=== PATIENT | male | born 2000 | race Caucasian/White ===

== ENCOUNTER 2018-01-02 08:15 | Emergency (ER) | payer OTHER ==
[2018-01-02 09:00] LABS: #Basophils 0.1 thou/uL (0.0-0.2); #Eosinphils 0.2 thou/uL (0.0-0.7); #Lymphocytes 1.2 thou/uL (1.20-3.40); #Monocytes 0.4 thou/uL (0.11-0.59); #Neutrophils 4.1 thou/uL (1.40-6.50); %Basophils 0.9 % (0.0-1.0); %Eosinophils 4.1 % (0.0-10.0); %Lymphocytes 20.1 % (28.0-48.0); %Monocytes 7.2 % (0.0-4.0); %Neutrophils 67.7 % (31.0-61.0); Hemoglobin 17.4 g/dL (14.0-18.0); Mean Corpuscular HGB CONC 34.8 g/dL (32.0-36.0); Mean Corpuscular Hemoglobin 32.9 pg (25.0-35.0); Mean Corpuscular Volume 94.5 fL (78.0-98.0); Platelet Count 180 thou/uL (130-400); RBC Distribution Width 11.4 % (11.5-14.5); Red Blood Cell (RBC) Count 5.29 mill/uL (4.00-5.20)
[2018-01-02 09:14] LABS: Anion Gap 15 mmol/L (10-20); BUN (Urea Nitrogen) 6 mg/dL (8.4-21.0); Calc. Creatinine Clearance 0 mL/min (70-130); Calcium 9.7 mg/dL (7.8-10.44); Carbon Dioxide 18 mmol/L (22-29); Chloride 108 mmol/L (98-107); Estimated GFR-MDRD Greater than 90; Glucose 114 mg/dL (70-105); Potassium 3.8 mmol/L (3.5-5.1); Sodium 137 mmol/L (136-145)
[2018-01-02 09:16] LABS: Carbamazepine-Tegretol 3.2 ug/mL (4.0-12.0)
[2018-01-02] MEDS ORDERED: carBAMazepine 100 mg Chewable Tablet PO SCH (10:00)
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
== END 2018-01-02 10:29 | disposition home or self-care (01) ==
LOC: ERS 08:15
DX: S00.81XA Abrasion of other part of head, initial encounter (principal); S60.512A Abrasion of left hand, initial encounter; G40.909 Epilepsy, unspecified, not intractable, without status epilepticus; F32.9 Major depressive disorder, single episode, unspecified; Z79.899 Other long term (current) drug therapy; X58.XXXA Exposure to other specified factors, initial encounter
CPT/HCPCS: 36415; 80048; 80156; 85025; 96360

== ENCOUNTER 2018-10-18 12:30 | Emergency (ER) | payer OTHER ==
[2018-10-18] MEDS ORDERED: Ondansetron PF 4 MG/2 ML Vial ONE (13:03)
[2018-10-18 13:48] LABS: Anion Gap 14 mmol/L (10-20); BUN (Urea Nitrogen) 9 mg/dL (8.9-20.6); Calc. Creatinine Clearance 0 mL/min (70-130); Calcium 9.8 mg/dL (7.8-10.44); Carbon Dioxide 24 mmol/L (22-29); Chloride 106 mmol/L (98-107); Estimated GFR-MDRD Greater than 90; Glucose 100 mg/dL (70-105); Potassium 4.1 mmol/L (3.5-5.1); Sodium 140 mmol/L (136-145)
== END 2018-10-18 14:03 | disposition home or self-care (01) ==
LOC: ERS 12:30
DX: R56.9 Unspecified convulsions (principal); F32.9 Major depressive disorder, single episode, unspecified; Z79.899 Other long term (current) drug therapy
CPT/HCPCS: 36415; 80048; 96361; 96374; J2405

== ENCOUNTER 2020-02-08 22:34 | Emergency (ER) | payer OTHER ==
[2020-02-09] MEDS ORDERED: Ketorolac Tromethamine 30 MG/ML VIAL ONE (00:11)
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
== END 2020-02-09 01:35 | disposition home or self-care (01) ==
LOC: ERS 22:34
DX: S93.505A Unspecified sprain of left lesser toe(s), initial encounter (principal); S20.211A Contusion of right front wall of thorax, initial encounter; S30.811A Abrasion of abdominal wall, initial encounter; S80.212A Abrasion, left knee, initial encounter; S80.211A Abrasion, right knee, initial encounter; F17.210 Nicotine dependence, cigarettes, uncomplicated; Z79.899 Other long term (current) drug therapy; V89.2XXA Person injured in unspecified motor-vehicle accident, traffic, initial encounter
CPT/HCPCS: 71046; 96372; J1885

== ENCOUNTER 2020-12-04 10:02 | Emergency (ER) | payer OTHER ==
[2020-12-04] MEDS ORDERED: Ketorolac Tromethamine 30 MG/ML VIAL ONE (11:07)
== END 2020-12-04 11:28 | disposition home or self-care (01) ==
LOC: ERS 10:02
DX: M54.42 Lumbago with sciatica, left side (principal)
CPT/HCPCS: 96372; 99283; J1885

== ENCOUNTER 2022-10-23 09:35 | Day surgery (SDC) | payer OTHER ==
[2022-10-22 13:24] VITALS: BMI 32.5
[2022-10-23 10:44] LABS: #Eosinphils 0.1 thou/uL (0.0-0.7); #Monocytes 0.8 thou/uL (0.11-0.59); #Neutrophils 9.8 thou/uL (1.40-6.50); %Basophils 0.2 % (0.0-1.0); %Eosinophils 0.7 % (0.0-10.0); %Lymphocytes 12.7 % (21.0-51.0); %Monocytes 6.7 % (0.0-10.0); %Neutrophils 79.4 % (42.0-75.0); Hematocrit 48.3 % (42.0-52.0); Mean Corpuscular HGB CONC 35.2 g/dL (32.0-36.0); Mean Corpuscular Volume 90.8 fl (78.0-98.0); Mean Platelet Volume 10.3 fL (7.4-10.4); Platelet Count 320 10x3/uL (130-400); RBC Distribution Width 12.4 % (11.5-14.5); Red Blood Cell (RBC) Count 5.32 mill/uL (4.70-6.10); White Blood Cell (WBC) Count 12.3 10x3/uL (4.8-10.8)
[2022-10-23] MEDS ORDERED: fentaNYL 50 mcg/mL 1 mL Vial ONE ×2 (11:06→12:00)
[2022-10-23] MEDS ORDERED: Bupivacaine PF 0.5% 30 ML VIAL ONE ×2 (11:06→12:10)
[2022-10-23] MEDS ORDERED: Midazolam HCl 2 mg/2 ml Vial ONE (11:06)
[2022-10-23] MEDS ORDERED: EPINEPHrine 1 MG/ML AMP ONE ×2 (11:06→12:10)
[2022-10-23] MEDS ORDERED: Clindamycin/D5W 600 mg/50 ml Premix Bag ONE (12:20)
[2022-10-23] MEDS ORDERED: Lidocaine 1% PF 5 ML VIAL ONE (12:28)
[2022-10-23] MEDS ORDERED: Ketorolac Tromethamine 30 MG/ML VIAL ONE (12:28)
[2022-10-23] MEDS ORDERED: Rocuronium Bromide 10 MG/ML (10ML VIAL) ONE (12:28)
[2022-10-23] MEDS ORDERED: Dexamethasone 20 MG/5 ML VIAL ONE (12:28)
[2022-10-23] MEDS ORDERED: Ondansetron PF 4 MG/2 ML Vial ONE (12:28)
[2022-10-23] MEDS ORDERED: PHENYLEPHRINE-NS 100 MCG/ML 10 ML SYRINGE ONE (12:28)
[2022-10-23] MEDS ORDERED: PROPOFOL 200 MG/20 ML VIAL ONE (12:28)
== END 2022-10-23 18:02 | disposition home or self-care (01) ==
LOC: SDC 09:35
PROVIDERS: ATTEND Orthopaedic Surgery
PROC: 0PSB04Z Reposition Left Clavicle with Internal Fixation Device, Open Approach (ICD-10-PCS; principal; 2022-10-23)
PROC: 0MQ20ZZ Repair Left Shoulder Bursa and Ligament, Open Approach (ICD-10-PCS; principal; 2022-10-23)
DX: S42.032A Displaced fracture of lateral end of left clavicle, initial encounter for closed fracture (principal); S43.82XA Sprain of other specified parts of left shoulder girdle, initial encounter; Z87.891 Personal history of nicotine dependence; Z88.0 Allergy status to penicillin; V29.99XA Rider (driver) (passenger) of other motorcycle injured in unspecified traffic accident, initial encounter
CPT/HCPCS: 85025; C1713; J0171; J1100; J1885; J2250; J2405; J2704; J3010; J3490; S0020